=== PATIENT | female | born 1940 | race Caucasian/White ===

== ENCOUNTER 2018-02-16 06:29 | Emergency (ER) | payer OTHER ==
[~2018-02-16] VITALS: Ht 162.6 cm; Wt 81.6 kg
[~2018-02-16 06:29] MED LIST: PERCOCET 325 MG1 TA2 PO
--- NOTE | 2018-02-16 06:38 | ED CARDIAC/CP/PALPITATIONS ---
History of Present Illness General Chief Complaint: Upper Extremity Problem Stated Complaint: "NECK AND LT SHOULDER PAIN" Source: patient Exam Limitations: no limitations Vital Signs & Intake/Output Vital Signs & Intake/Output Vital Signs Date Time Temp Pulse Resp B/P B/P Pulse O2 O2 Flow FiO2 Mean Ox Delivery Rate 02/16 1030 97.9 85 18 145/67 99 Room Air 02/16 0822 98.4 02/16 0726 98.4 02/16 0643 99 Room Air 02/16 0638 98.4 99 20 199/94 99 Room Air Reconcile Medications OXYCODONE HCL/ACETAMINOPHEN (Percocet 5-325 MG Tablet) 325 MG/5 MG TAB 1-2 TAB PO Q4-6 PRN PRN PAIN Triage Nurses Notes Reviewed? yes Onset: Gradual Duration: day(s): Timing: recent history Location: left shoulder Radiation: neck Activities at Onset: none Associated Symptoms: left upper back, shoulder pain Patient currently breastfeeds: No HPI: 77 yo woman, h/o cva with right hemiparei presents with left shoulder and upper back pain. "I had it when I went to bed last night... it hurt when I moved my shoulder around." She notes that the pain is worse with movement and abates with holding her arm still. She has left upper cherst pa (Maddie RUCKER,Aung De La Cruz) Allergies Coded Allergies: epinephrine (UNKNOWN 02/16/18) ibuprofen (UNKNOWN REACTION TO LARGE DOSES OF IBUPROFEN 02/16/18) meclizine (UNKNOWN 02/16/18) phenytoin (UNKNOWN 02/16/18) procaine (UNKNOWN 02/16/18) (Brandyn Lindsay DO) Past History Travel History Traveled to [place] past 21 day No Medical History Any Pertinent Medical History? 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 No (Maddie RUCKER,Aung De La Cruz) Review of Systems Review of Systems Constitutional: Reports: no symptoms (ssssssssssssssssssssssssssssss). EENTM: Reports: no symptoms. Respiratory: Reports: no symptoms. Cardiovascular: Reports: no symptoms. GI: Reports: no symptoms. Genitourinary: Reports: no symptoms. Musculoskeletal: Reports: no symptoms. Skin: Reports: no symptoms. Neurological/Psychological: Reports: no symptoms. Hematologic/Endocrine: Reports: no symptoms. Immunologic/Allergic: Reports: no symptoms. All Other Systems: Reviewed and Negative (Maddie RUCKER,Aung De La Cruz) Physical Exam Physical Exam General Appearance: well developed/nourished, alert, awake, anxious, comfortable , mild distress Head: atraumatic, normal appearance Eyes: Bilateral: normal appearance. Ears, Nose, Throat: normal pharynx, left upper neck muscle spasm to palpation. left shoulder pain limited due to discomfort. Respiratory: normal breath sounds, chest non-tender, no respiratory distress, quiet respiration Cardiovascular: regular rate/rhythm Gastrointestinal: normal bowel sounds, soft, non-tender Extremities: normal capillary refill, left trap's, muscle spasm on left cervical spine. Core Measures ACS in differential dx? No CVA/TIA Diagnosis No Sepsis Present: No Sepsis Focused Exam Completed? No All Positive = PERC Ruled Out: Positive: age < 50 years, heart rate < 100 bpm, O2 sat > 94%, no hemoptysis, no hormone use, no prior DVT or PE, no unilateral leg swellin, no surgery/trauma w/ in 4w. (Maddie RUCKER,Aung De La Cruz) Progress Differential Diagnosis: muscle spasm vs other... lower on list is myocardial issues. Plan of Care: Orders Procedure Date/time Status TROPONIN LEVEL 02/16 1100 Complete EKG 02/16 1100 Active LIPASE 02/16 0700 Complete AMYLASE 02/16 0700 Complete EKG 02/16 0648 Active TROPONIN LEVEL 02/16 0639 Complete HEPATIC FUNCTION PANEL 02/16 0639 Complete CBC WITHOUT DIFFERENTIAL 02/16 0639 Complete BASIC METABOLIC PANEL 02/16 0639 Complete EKG 02/16 0639 Active Laboratory Tests 02/16/18 1048: Troponin I < 0.01 02/16/18 0700: Anion Gap 10, Estimated GFR > 60, BUN/Creatinine Ratio 40.0 H, Glucose 104 H, Calcium 9.3, Total Bilirubin 0.5, Direct Bilirubin 0.2, AST 19, ALT 26, Alkaline Phosphatase 84, Troponin I < 0.01, Total Protein 6.7, Albumin 3.8, Amylase 51, Lipase 78, CBC w Diff NO MAN DIFF REQ, RBC 4.28, MCV 89.9, MCH 30.4, MCHC 33.8, RDW 12.7, MPV 7.6, Gran % 70.2, Lymphocytes % 18.6 L, Monocytes % 9.2, Eosinophils % 1.8, Basophils % 0.2, Absolute Granulocytes 4.4, Absolute Lymphocytes 1.2, Absolute Monocytes 0.6, Absolute Eosinophils 0.1, Absolute Basophils 0 02/16/18 0648: Troponin I Cancelled, Amylase Cancelled, Lipase Cancelled Initial ED EKG: wandering pacer, no acute chnages. Hand-Off Endorsed To: Brandyn Lindsay DO Endorsed Time: 0700 Pending: consult, labs (Aung Perkins MD) Departure Departure Disposition: HOME OR SELF CARE Condition: Stable Clinical Impression Primary Impression: Left shoulder pain Referrals: Schuler Noah RUCKER (PCP/Family) Departure Forms: Customer Survey General Discharge Information (Aung Perkins MD) Departure Comments 02/16/18 12:52 PM Patient has responded well to the pain meds. Labs and EKG unremarkable. Serial troponins are negative. We will discharge on a short course of prednisone. She will follow-up with her doctor this week. (Brandyn Lindsay DO) Critical Care Note Critical Care Note Critical Care Time: non-applicable (Maddie RUCKER,Aung De La Cruz)
[2018-02-16 07:15] LABS: ABSOLUTE BASOPHIL COUNT 0 /CUMM (0.0-0.2); ABSOLUTE EOSINOPHIL COUNT 0.1 /CUMM (0.0-0.7); ABSOLUTE GRANULOCYTE CT 4.4 /CUMM (1.4-6.5); ABSOLUTE LYMPH COUNT 1.2 /CUMM (1.2-3.4); ABSOLUTE MONOCYTE COUNT 0.6 /CUMM (0.10-0.60); BASOPHIL % 0.2 % (0.0-2.0); EOSINOPHIL % 1.8 % (0-5); GRANULOCYTE % 70.2 % (42.2-75.2); HEMATOCRIT 38.5 % (37-47); MEAN CORPUSCULAR HGB 30.4 PG (27.0-31.0); MEAN CORPUSCULAR HGB CONC 33.8 G/DL (33.0-37.0); MEAN CORPUSCULAR VOLUME 89.9 FL (81.0-99.0); MEAN PLATELET VOLUME 7.6 FL (7.4-10.4); PLATELET COUNT 240 /CUMM (130-400); RBC DISTRIBUTION WIDTH 12.7 % (11.5-14.5); RED BLOOD CELL CT 4.28 /CUMM (4.20-5.40); WHITE BLOOD CELL COUNT 6.3 /CUMM (4.8-10.8)
--- NOTE | 2018-02-16 07:42 | RADIOLOGY REPORT ---
EXAMINATION: XR PORTABLE CHEST CLINICAL INFORMATION: Chest pain COMPARISON: Multiple priors, most recent from 09/20/2016. TECHNIQUE: Portable frontal view of the chest was obtained. FINDINGS: There is a partially imaged catheter projecting over the neck and chest, presumably [employer]ERK shunt catheter, demonstrating increased calcification around the catheter. Heart size is within normal limits for technique. Mediastinal contours are unremarkable. No overt congestive changes. Minimal left basilar atelectasis. Lungs are otherwise clear. No significant pleural effusion. No pneumothorax. No acute osseous abnormality is demonstrated. IMPRESSION: Minimal left basilar atelectasis. Lungs are otherwise clear. 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
[2018-02-16 10:30] VITALS: BP 145/67
[2018-02-16] MEDS ORDERED: MILLIPRED5 M1 PO (12:57)
== END 2018-02-16 13:19 ==
LOC: ERH 06:29
PROVIDERS: Pediatrics
DX: M25.512 Pain in left shoulder (principal)
CPT/HCPCS: 71045; 93005; 93010; 96365; 96375; J0131; J1885; J7512